=== PATIENT | female | born 1975 | race Hispanic/Latino ===

== ENCOUNTER 2020-01-02 06:11 | Day surgery (SDC) | payer OTHER ==
[2019-12-27 15:49] LABS: Urine Appearance CLEAR; Urine Bilirubin NEGATIVE (NEG); Urine Blood 3+ (NEG); Urine Color YELLOW; Urine Glucose NEGATIVE (NEG); Urine Protein NEGATIVE (NEG); Urine Specific Gravity <=1.005 (1.005-1.030); Urine Urobilinogen 0.2 mg/dL (0.2-1.0)
[2019-12-27 15:50] LABS: Absolute Lymphocytes (CBC) 2.3 K/uL (0.7-4.9); Basophils % 0.4 % (0-1.3); Lymphocytes % 35.8 % (15.3-44.8); MPV 8.4 fL (7.6-11.3); RBC Red Blood Cell Count 4.15 M/uL (3.86-4.86)
[2019-12-27 15:56] LABS: Protime INR 0.97
[2019-12-27 15:56] LABS: Urine Microscopic Reflex ORDER UMIC
[2019-12-27 17:36] LABS: Urine Bacteria <20 /HPF (<20); Urine Culture Reflex Order NOT NEEDED
--- OUTSIDE RECORDS SUMMARY | 2020-01-02 06:19 | XMS REPORT ---
:1975 Author Organization [facility] Address [address] [place] [address] Dr. Farmer [address] [place] [id number] Care Team Providers Name Role Phone Unavailable Unavailable Unavailable Problems This patient has no known problems. Allergies, Adverse Reactions, Alerts This patient has no known allergies or adverse reactions. Medications This patient has no known medications.
[2020-01-02 06:29] LABS: Specific Gravity 1.025 (1.005-1.030)
[2020-01-02] MEDS ORDERED: Ringers Lactate 1,000 ML IV ONE ×3 (06:31→11:10)
[2020-01-02] MEDS ORDERED: CEFAZOLIN/SWI 2gm 2 GM/20 ML SYR ONE (06:31)
[2020-01-02] MEDS ORDERED: SCOPOLAMINE HYDROBROMIDE PATCH TD ONE (06:31)
[2020-01-02] MEDS ORDERED: NS 0.9% VIAL 0 ML ONE (07:17)
[2020-01-02] MEDS ORDERED: VASOPRESSIN 20 UNIT/ML VIAL ONE (07:18)
[2020-01-02] MEDS ORDERED: BUPIVACAINE 0.25% PF 30 ML VIAL ONE (07:18)
[2020-01-02] MEDS ORDERED: ROCURONIUM 50 MG/5 ML VIAL IV ONE (07:24)
[2020-01-02] MEDS ORDERED: propofoL 200 MG/20 ML VIAL IV ONE (07:24)
[2020-01-02] MEDS ORDERED: MIDAZOLAM HCL 2 MG/2 ML INJ ONE (07:25)
[2020-01-02] MEDS ORDERED: FENTANYL CITR 250 MCG/5 ML ONE (07:25)
[2020-01-02] MEDS ORDERED: LIDOCAINE 2% MPF 5 ML VIAL ONE (07:25)
[2020-01-02] MEDS ORDERED: ONDANSETRON 4 MG/2 ML VIAL ONE ×2 (07:25→12:06)
[2020-01-02] MEDS ORDERED: dexAMETHasone 10 MG/ML VIAL ONE (07:25)
[2020-01-02] MEDS: Ringers Lactate 1,000 ML IV ONE ×2 (08:52→08:53)
[2020-01-02] MEDS ORDERED: NS 0.9% VIAL 10 ML ONE ×2 (09:21→10:57)
[2020-01-02] MEDS ORDERED: VECURONIUM 10 MG/VIAL IV ONE (10:06)
[2020-01-02] MEDS ORDERED: MEPERIDINE HCL 25 MG/0.5 ML ONE ×2 (10:57→12:28)
[2020-01-02] MEDS ORDERED: GLYCOPYRROLATE 0.2 MG/ML SYR ONE (11:11)
[2020-01-02] MEDS ORDERED: NEOSTIGMINE 1 MG/ML -5 ML ONE (11:11)
[2020-01-02] MEDS: HYDROMORPHONE HCL 1 MG/ML INJ ONE ×2 (11:52→11:58)
[2020-01-02] MEDS: HYDROMORPHONE HCL 2 MG/ML inj ONE ×4 (12:05→12:20)
[2020-01-02 12:55] VITALS: TEMP 98.2
[2020-01-02] MEDS ORDERED: HYDROCODONE/APAP 5/325 MG TAB ONE (13:12)
[2020-01-02 15:29] VITALS: BP 120/68; O2SAT 96
--- NOTE | 2020-01-23 23:40 | OP ---
Date of Procedure: 01/02/2020 Surgeon: Charissa Mena MD [employer] [address] [employer]: Mima Hernandez. Preoperative Diagnoses: Irregular bleeding, intraabdominal pelvic mass, fibroids. Postoperative Diagnoses: AUB-L/A, uterovaginal prolapse of level 1 defect. Procedures Performed: Total laparoscopic hysterectomy, bilateral salpingectomy, vaginal morcellation for removal of the uterine fibroid and uterine specimen and uterosacral ligament suspension, colpope xy, and cystoscopy. Estimated Blood Loss: Less than 50. Anesthesia: General endotracheal. Specimens: Uterus, bilateral tubes morcellated. Complications: No complications. Drains: No drains. Condition: Stable. Indications: The patient is a 44-year-old with complaints of a pelvic mass and irregular bleeding. The mass-effect on her bladder was also a part of the complaint. After sampling, no atypia or malign shruthi was identified. Discussed options of uterine artery embolization, myomectomy, observation versu s hysterectomy. Patient wanted to proceed with hysterectomy. The uterine specimen cyst was large an d she was consented for vaginal morcellation since the biopsy was negative. If the specimen would no t fit through the vagina, then I would make a mini-laparotomy to retrieve the specimen through the mi ni Pfannenstiel. Description Of Procedure: After consenting, the patient was brought to the OR. 2 g of Ancef was giv en and the patient was taken back to OR, placed in a supine fashion on the operating table. General anesthesia given and placed in a dorsal lithotomy position. Abdomen, vulva, vagina, and perineum pre pped and draped in a sterile fashion. Arms tucked by the side. Legs in Memo stirrups. Pelvic exam performed and uterine size confirmed. After Nolan was placed to drain the bladder and attached to cysto tubing to retrograde fill the bladd er. Then, a large VCare was introduced into the uterus in the usual fashion. This area was draped. A 1.5 cm supraumbilical incision in the midline was made with a scalpel. Fascia incised and tagged with 0 Vicryl sutures. Peritoneum entered sharply. S-retractors were placed. Gail introduced. I nsufflation done. Upper abdominal surfaces and pelvic cavity were all visualized. The ovaries appea red to be unremarkable. Upper abdominal surface unremarkable as well. The patient was placed in [facility]. Two 5 mm left lower quadrant and right lower quadrant ports were placed under direct vis ion. Then, a 10 mm suprapubic incision was made and trocar placed without any problems. After visua lizing, the course of the ureters on the pelvic brim to the ureteric tunnels on both sides and no dis tortion was noted in their course. The anterior aspect of the cul-de-sac was also visualized, no dis tortion here and hysterectomy was started. The left tube was removed with the help of the LigaSure. The round ligament was picked up and dissection was performed opening the peritoneum from the anteri or leaf of the broad ligament towards the bladder, creating a bladder flap. The dissection was taken all the way to the round ligament on the opposite side. Then, the round ligament was taken down, ut ero-ovarian ligament, mesosalpinx, and the broad ligament here were all taken down and the posterior broad ligament was opened up and taken down dissecting the posterior peritoneum to the distal part of the uterosacral ligament near the posterior part of the VCare cup. Then, the broad ligament was ske letonized to expose the vessels. The vessels were cauterized towards the uterine side to decrease th e pulse pressure. On opposite side, dissection was performed taking down the utero-ovarian ligament, mesosalpinx, and tube were . The tube was removed. The round ligament was cauterized and broad ligament anteriorly was connected with the raised bladder flap and posteriorly peritoneum disse cted to the area of the posterior aspect of the vaginal cuff. Then, the broad ligament was taken rhina n to skeletonize the vessels. Then, anteriorly the vesicovaginal space was entered using a monopolar hook blade, dissecting the preperitoneal and prevesical fat down and once the vesicovaginal space wa s entered, this was dissected down as this was an avascular space. The bladder was pushed down adequ ately below the level of the vaginal manipulator cup. Then, the vessels were identified on both side s. Bipolar basket tip was used to take down the vessels. Then, the LigaSure was used to take these down and separate. Then, the cardinal ligaments were taken down on the right side. Similar dissecti on was performed on the opposite side as well. Monopolar hook blade to perform a circumferential col potomy and the circumferential colpotomy specimen was pulled out through the vagina. Both tubes were retrieved by this time and ovaries were in place. Two small Deavers were taken to retract and expose the specimen. Then, mass clamps were used to plac e on the cervix to pull it down and vaginally morcellate with the 10 blade and removed the entire spe cimen without any problems. Once all this was removed, vaginal closure was performed with lap pads s tuffed in a glove. Then, we went back up to evaluate. The apex of the vagina has lots of support. Uterosacral was detached from the proximal part of the vaginal apex. The plan was to close the vagin al cuff and then support the uterosacral distally to the apex of the vaginal cuff to the anterior and posterior connective tissue layers. Zero Vicryl with simple sutures were placed on both angles. Then, the PDS sutures were taken and pas sed through the distal part of the uterosacral ligaments and through the posterior vaginal wall and a nterior vaginal wall including the connective tissues on both the ross. Then, another Vicryl was ta elkin to make 0 [id number] and this was closed down with . Similar support procedure wa s performed on both sides and the vaginal cuff was closed with 2 other 0 Vicryl sutures in a figure-o f-eight fashion in the middle. There was excellent support and excellent apical suspension. The vag inal sponge was removed and the vaginal exam was performed and there was excellent support at level 1 and Nolan was removed. Cystoscopy was performed with 30-degree lens and normal saline, 17-[place] sh eath. Excellent efflux of urine from both ureteral orifices was noted. No evidence of any foreign b eloise or trauma to the bladder. The Nolan was left out after the bladder was drained completely. This area was cleaned. The vaginal sponge was removed as well. Thorough irrigation and suction of the vaginal cuff at the level of the cuff was done. Posterior cul -de-sac was also well irrigated. There was excellent hemostasis. Both ovaries were intact and no pr oblems. All the trocars were removed under direct vision. Marcaine 0.25% was injected at the site o f the skin and the fascia upon entry and at the exit. Same thing at the level of the supraumbilical incision as well. The fascial edges were closed with the help of the tagged sutures, tied to each ot her, simple 0 Vicryl stitch in the suprapubic area for the fascial closure and the skin incisions sebastian sed with the help of interrupted 4-0 Vicryl and Dermabond placed. Instrument, needle, and sponge cou nts were correct at the end of the case. The patient was recovered from anesthesia and taken to the PACU in stable condition. EBL was minimal, less than 50 mL. She will follow up with me in 1 week. TON/JES Voice ID: [id number] Report ID: [id number]
== END 2020-01-02 15:20 | disposition home or self-care (01) ==
LOC: OR 06:11
PROVIDERS: ATTEND Obstetrics & Gynecology
PROC: 0UT74ZZ Resection of Bilateral Fallopian Tubes, Percutaneous Endoscopic Approach (ICD-10-PCS; 2020-01-02)
PROC: 0USG7ZZ Reposition Vagina, Via Natural or Artificial Opening (ICD-10-PCS; 2020-01-02)
PROC: 0UT94ZZ Resection of Uterus, Percutaneous Endoscopic Approach (ICD-10-PCS; principal; 2020-01-02 07:30)
DX: N92.6 Irregular menstruation, unspecified (principal); D25.9 Leiomyoma of uterus, unspecified; N84.1 Polyp of cervix uteri; N94.12 Deep dyspareunia; N80.0 Endometriosis of uterus; N72 Inflammatory disease of cervix uteri; N83.8 Other noninflammatory disorders of ovary, fallopian tube and broad ligament; Z88.6 Allergy status to analgesic agent; Z88.8 Allergy status to other drugs, medicaments and biological substances; Z80.3 Family history of malignant neoplasm of breast; Z82.3 Family history of stroke; Z83.3 Family history of diabetes mellitus; Z82.49 Family history of ischemic heart disease and other diseases of the circulatory system
CPT/HCPCS: 85025; 36415; 86900; 86850; 81025; 85610; 86901; 88307; 85730; 58573; 57283; J2704; J2250; J1170 ×2; J3010; J1100; J2175 ×2; J2710; J0690; J7120 ×4; J2405 ×2; 81003; 81015